=== PATIENT | male | born 1980 | race Caucasian/White ===

== ENCOUNTER 2019-06-08 16:19 | Emergency (ER) | payer SELFPAY ==
[~2019-06-08] VITALS: Ht 188 cm; Wt 78.5 kg
[~2019-06-08 16:19] MED LIST: Z.0.VICODIN 5-5001 E
--- OUTSIDE RECORDS SUMMARY | 2019-06-08 16:22 | XMS REPORT ---
Author [facility] Address Unknown Phone Unavailable Care Team Providers Care Professional Services Manager Name Role Phone Unavailable Unavailable Payers Payer Name Policy Type Policy Number Effective Date Expiration Date Problems This patient has no known problems. Allergies, Adverse Reactions, Alerts Allergy Name Allergy Type Status Severity Reaction(s) Onset Date Inactive Date Treating Clinician Comments No Known Allergies DA Active U 2016-04-21 00:00:00 Medications This patient has no known medications. Encounters Start Date/Time End Date/Time Encounter Type Admission Type Attending Clinicians Care Facility Care Department Encounter ID 2018-02-13 00:00:00 2018-02-13 00:00:00 Outpatient [facility] [id number] 2018-02-13 00:00:00 2018-02-13 00:00:00 Outpatient [facility] [id number] 2018-01-12 13:21:01 2018-01-12 13:21:01 Outpatient [facility] [id number] 2017-12-22 08:38:10 2017-12-22 08:38:10 Outpatient [facility] [id number] 2017-12-08 12:39:25 2017-12-08 12:39:25 Outpatient [facility] [id number] 2017-11-24 16:05:47 2017-11-24 16:05:47 Outpatient [facility] [id number] 2017-11-24 14:37:08 2017-11-24 14:37:08 Outpatient [facility] [id number] Results Test Description Test Time Test Comments Text Results Atomic Results Result Comments - CT C-SPINE W/O CONTRAST 2019-06-01 07:33:00 Name: ANNE MARIE LUIS [facility] : 1980 Age/S: 38 / M [address] [place] [address] Unit #: [id number] Loc: [place] [address] Phys: Rachel Warren MD Acct: [id number] Dis Date: Status: REG ER PHONE #: [phone] Exam Date: 06/01/2019714 FAX #: [phone] Reason: neck pain EXAMS: CPT CODE: [id number] CT C-SPINE W/O CONTRAST 30394 HISTORY: neck pain TECHNIQUE: 2.[address] of the cervical spine. Sagittal and coronal reformatted images were generated. Automated exposure control for dose reduction. COMPARISON: None FINDINGS: Craniocervical and cervicothoracic articulations are appropriate. Mild degenerative changes of the anterior atlantoaxial joint. Mild reversal of the cervical lordosis. Mature C5-C7 fusion with anterior fusion plate as well as олег ateral articular pillar screws/rods. Vertebral body alignment is satisfactory. Vertebral body heights are preserved. Small anterior cervical marginal osteophytes. Mild disc space loss at C2-C3 and C7-T1. Mild upper cervical facet arthrosis. No significant disc bulge or protrusion. No central canal or foraminal stenosis. No prevertebral or paraspinal soft tissue abnormality. Visualized posterior fossa contents are grossly unremarkable. Lung apices are clear. IMPRESSION: Mild cervical degenerative disc disease and spo ndylosis. Mature C5-C7 fusion. at 0733 Reported and signed by: Angelica Lance D.O. CC: Rachel Warren MD Technologist:Izabel Nieto CTDI: DLP: Trnscb Date/Time: 06/01/2019 (0733) [email or web address] Orig Print D/T: S: 06/01/2019 (0737) PAGE 1 Signed Report - XR C-SPINE 2-3 VIEWS 2019-06-01 07:24:00 Name: ANNE MARIE LUIS [facility] : 1980 Age/S:38 /M [address] [place] [address] Unit#:[id number] Loc: [place] [address] Phys: Rachel Warren MD Dis Date: PHONE #: [phone] Status: REG ER FAX #: [phone] Exam Date: 06/01/2019 Reason: chest pain and neck pain EXAMS: CPT CODE: [id number] XR C-SPINE 2-3 VIEWS 85818 HISTORY: Neck pain TECHNIQUE: AP, lateral, and open-mouth odontoid views of the cervical spine. COMPARISON: None FINDINGS: Craniocervical and cervicothoracic articulations are appropriate. Mature C5-C7 fusion with anterior fusion plate as well as bilateral articular pillar screws/rods. Vertebral body alignment is satisfactory. Vertebral body heights are preserved. Small marginal osteophytes at C4-C5 and C7-T1. Mild C7-T1 disc space loss. Mild cervical facet arthrosis. No prevertebral soft tissue swelling. Lung apices are clear. IMPRESSION: Mild degenerative changes of the cervical spine. Mature C5-C7 fusion. at 0724 Reported and signed by: Angelica Lance D.O. CC: Rachel Warren MD Technologist: WALE PYLE(R),RDMS,[facility] Data: 06/01/2019 (07) [email or web address] Orig Print D/T: S: 06/01/2019 (0727) PAGE 1 Signed Report C REACTIVE PROTEIN 2019-06-01 07:23:00 C REACTIVE PROTEIN (test code=CRP) <0.29 0.00-5.00 - XR CHEST 2 [id number] 07:21:00 Name: ANNE MARIE LUIS [facility] : 1980 Age/S:38 /M [address] [facility] Unit#:[id number] Loc: [place], [place] [address] Phys: Rachel Warren MD Dis Date: PHONE #: [phone] Status: REG ER FAX #: [phone] Exam Date: 06/01/2019 Reason: chest pain and neck pain EXAMS: CPT CODE: [id number] XR CHEST 2 V 48764 HISTORY: chest pain and neck pain TECHNIQUE: PA and lateral chest x-ray COMPARISON: None FINDINGS: No airspace consolidation or pleural effusion. Normal heart size. Mediastinal silhouette is unremarkable. Visualized osseous structures are grossly intact. IMPRESSION: No radiographic evidence of acute cardiopulmonary process. at 0721 Reported and signed by: Angelica Lance D.O. CC: Rachel Thorpe MD Technologist: WALE PYLE RT(R),RDMS,CT Trnscrpt Data: 06/01/2019 (07) [email or web address] Orig Print D/T: S: 06/01/2019 (9751) PAGE 1 Signed Report BASIC METABOLIC [id number] 06:53:00* Test Item Value Reference Range Comments SODIUM (test code=NA) 140 mmol/L 136-145 POTASSIUM (test code=K) 4.2 mmol/L 3.5-5.1 CHLORIDE (test code=CL) 104 mmol/L 101-109 CARBON DIOXIDE (test code=CO2) 28.0 mmol/L 21-32 ANION GAP (test code=GAP) 12 mmol/L 10-20 GLUCOSE (test code=GLU) 97 mg/dL 74-106 BLOOD UREA NITROGEN (test code=BUN) 12 mg/dL 3-21 GLOMERULAR FILTRATION RATE (test code=GFR) > 60 mL/min >=60 Estimated GFR by using Modified MDRD formula.Chronic kidney disease is defined as either kidney damageor GFR <60 mL/min/1.73 m2 for >3 months. CREATININE (test code=CREAT) 1.01 mg/dL 0.55-1.3 BUN/CREATININE RATIO (test code=BUN/CREA) 11.9 10-20 CALCIUM (test code=CA) 8.6 mg/dL 8.4-10.2 [id number] 06:53:00* Test Item Value Reference Range Comments TROPONIN-I (test code=TROPI) <0.015 ng/mL 0.00-0.056 [id number] 06:51:00* Test Item Value Reference Range Comments D-DIMER (test code=DDIMER) < 100 ng/ml < 600 BASIC METABOLIC [id number] 06:44:00* Test Item Value Reference Range Comments SODIUM (test code=NA) 140 mmol/L 136-145 POTASSIUM (test code=K) 4.2 mmol/L 3.5-5.1 CHLORIDE (test code=CL) 104 mmol/L 101-109 CARBON DIOXIDE (test code=CO2) 28.0 mmol/L 21-32 ANION GAP (test code=GAP) 12 mmol/L 10-20 GLUCOSE (test code=GLU) 97 mg/dL 74-106 BLOOD UREA NITROGEN (test code=BUN) 12 mg/dL 3-21 GLOMERULAR FILTRATION RATE (test code=GFR) > 60 mL/min >=60 Estimated GFR by using Modified MDRD formula.Chronic kidney disease is defined as either kidney damageor GFR <60 mL/min/1.73 m2 for >3 months. CREATININE (test code=CREAT) 1.01 mg/dL 0.55-1.3 BUN/CREATININE RATIO (test code=BUN/CREA) 11.9 10-20 CALCIUM (test code=CA) 8.6 mg/dL 8.4-10.2 [id number] 06:44:00* Test Item Value Reference Range Comments TROPONIN-I (test code=TROPI) ng/mL 0-0.045 CBC W/O [id number] 06:38:00* Test Item Value Reference Range Comments WHITE BLOOD CELL (test code=WBC) 8.7 K/mm3 4.5-12.5 RED BLOOD CELL (test code=RBC) 5.42 mill/mm3 4.0-5.8 HEMOGLOBIN (test code=HGB) 15.6 gram/dL 13.0-17.5 HEMATOCRIT (test code=HCT) 46.9 % 42.0-52.0 MEAN CELL VOLUME (test code=MCV) 86.5 fL 80-98 MEAN CELL HGB (test code=MCH) 28.8 picogram 27.0-33.0 MEAN CELL HGB CONCETRATION (test code=MCHC) 33.3 gram/dL 33.0-36.0 RED CELL DISTRIBUTION WIDTH (test code=RDW) 12.7 % 11.6-16.2 RED CELL DISTRIBUTION WIDTH SD (test code=RDW-SD) 40.9 fL 37.0-51.0 PLATELET COUNT (test code=PLT) 201 K/mm3 150-450 MEAN PLATELET VOLUME (test code=MPV) 10.8 fL 6.7-11.0
[2019-06-08] MEDS ORDERED: ASPIRIN 81 MG CHEW TAB PO NR (16:45)
[2019-06-08 16:52] LABS: BASOPHILS # (AUTO) 0.1 (0.0-0.1); EOSINOPHILS # (AUTO) 0.6 (0.0-0.4); EOSINOPHILS % 4.7 % (0.0-6.0); HEMATOCRIT 52.5 % (38.2-49.6); HEMOGLOBIN 17.4 g/dL (14.0-18.0); LYMPHOCYTES # (AUTO) 3.1 (1.0-3.2); LYMPHOCYTES % 25.9 % (18.0-39.1); MEAN CORPUSCULAR HEMOGLOBIN 29.6 pg (28-32); MEAN CORPUSCULAR HGB CONC 33.1 g/dL (31-35); MEAN CORPUSCULAR VOLUME 89.4 fL (81-99); MONOCYTES # (AUTO) 1.3 (0.2-0.8); MONOCYTES % 10.8 % (4.4-11.3); NEUTROPHILS # (AUTO) 6.8 (2.1-6.9); NEUTROPHILS % 56.7 % (38.7-80.0); PLATELET COUNT 164 x10e3/uL (140-360); RED BLOOD COUNT 5.87 x10e6/uL (4.3-5.7); RED CELL DISTRIBUTION WIDTH 13.2 % (11.7-14.4)
[2019-06-08 17:08] LABS: BILIRUBIN,URINE NEGATIVE (NEGATIVE); CLARITY,URINE CLEAR (CLEAR); COLOR,URINE YELLOW (YELLOW); KETONES,URINE NEGATIVE (NEGATIVE); LEUKOCYTE ESTERASE ,URINE NEGATIVE (NEGATIVE); NITRITE,URINE NEGATIVE (NEGATIVE); PROTEIN,URINE DIPSTICK NEGATIVE (NEGATIVE); URINE UROBILINOGEN 0.2 mg/dL (0.2 - 1)
[2019-06-08 17:17] LABS: BACTERIA,URINE RARE /HPF; EPITHELIAL CELLS,URINE FEW /LPF; RBC,URINE 0-5 /HPF (0-5); WBC,URINE (MAN) 0-5 /HPF (0-5)
--- NOTE | 2019-06-08 17:18 | Diagnostic Imaging Report ---
Examination: Single AP view of the chest. COMPARISON: None. INDICATION: Chest pain DISCUSSION: Lines/tubes: None. Lungs: The lungs are well inflated and clear. No pneumonia or pulmonary edema. Pleura: No pleural effusion or pneumothorax. Heart and mediastinum: The heart and the mediastinum are unremarkable. Bones and soft tissues: No acute bony abnormalities. IMPRESSION: 1. No acute cardiopulmonary abnormalities. Signed by: Dr. Nav Mast M.D. on 06/08/2019 5:15 PM
[2019-06-08 18:04] LABS: ALANINE AMINOTRANSFERASE 145 IU/L (0-55); ALBUMIN 4.3 g/dL (3.5-5.0); ALBUMIN/GLOBULIN RATIO 1.2 (0.8-2.0); ALKALINE PHOSPHATASE 116 IU/L (40-150); ANION GAP 17.5 mmol/L (8-16); BLOOD UREA NITROGEN 14 mg/dL (7-26); BUN/CREATININE RATIO 12 (6-25); CALCIUM 10.5 mg/dL (8.4-10.2); CARBON DIOXIDE 20 mmol/L (22-29); CHLORIDE 105 mmol/L (98-107); CREATINE KINASE 272 IU/L (30-200); CREATININE, SERUM 1.21 mg/dL (0.72-1.25); EST GLOMERULAR FILTRATION RATE > 60 ML/MIN (60-); GLUCOSE 99 mg/dL (74-118); POTASSIUM 4.5 mmol/L (3.5-5.1); SODIUM 138 mmol/L (136-145)
[2019-06-08 18:13] LABS: AMPHETAMINES SCREEN,URINE N (NEGATIVE); BENZODIAZEPINES SCREEN,URINE P (NEGATIVE); PHENCYCLIDINE SCREEN,URINE N (NEGATIVE)
[2019-06-08 21:41] VITALS: BP 132/79
== END 2019-06-08 21:00 | disposition home or self-care (01) ==
LOC: ER 16:19
DX: S29.011A Strain of muscle and tendon of front wall of thorax, initial encounter (principal); I10 Essential (primary) hypertension; G40.909 Epilepsy, unspecified, not intractable, without status epilepticus; M54.12 Radiculopathy, cervical region; M79.601 Pain in right arm
CPT/HCPCS: 36415; 71045; 80053; 80307; 81001; 82550; 82553; 84484; 85025; 85379; 99283